=== PATIENT | male | born 1970 | race Native Hawaiian/Other Pacific Islander ===

== ENCOUNTER 2020-11-01 16:41 | Emergency (ER) | payer OTHER ==
[~2020-11-01] VITALS: Ht 165.1 cm; Wt 86.2 kg
[2020-11-01 18:14] LABS: BASOPHILS 0.7 % (0.0-2.0); HEMATOCRIT 43.5 % (42.0-52.0); HEMOGLOBIN 14.8 gm/dL (14.0-18.0); LYMPHOCYTES 16.9 % (24.0-44.0); MCV 88.2 fL (80.0-100.0); MONOCYTES 9.3 % (1.0-8.0); PLATELET COUNT 155 thou/uL (150-400); POLYS 73.1 % (36.0-66.0); RBC 4.93 mil/uL (4.50-6.00); RDW 13.2 % (10.5-14.5); WBC 5.5 thou/uL (4.0-11.0)
[2020-11-01 18:23] LABS: ANION GAP 9 mmol/L (7-16); BUN 16 mg/dL (7-18); CALCIUM 8.7 mg/dL (8.5-10.1); CHLORIDE 96 mmol/L (98-107); CO2 24 mmol/L (21-32); CREATININE 1.4 mg/dL (0.7-1.3); GLUCOSE 122 mg/dL (74-106); POTASSIUM 3.6 mmol/L (3.5-5.1); SODIUM 129 mmol/L (136-145)
[2020-11-01 18:41] LABS: ALBUMIN 3.5 g/dL (3.4-5.0); APTT 31.3 Seconds (24.5-32.8); D-DIMER 0.19 ug/mLFEU (0.19-0.50); PROTIME 10.5 Seconds (9.3-11.4); SGOT 64 U/L (15-37); SGPT 52 U/L (16-63); TOTAL BILIRUBIN 0.5 mg/dL (0.2-1.0); TOTAL PROTEIN 7.8 g/dL (6.4-8.2); TROPONIN-I <0.06 ng/mL (<0.06)
[2020-11-01] MEDS ORDERED: ASA81BEC PO (18:59)
[2020-11-01] MEDS ORDERED: AZITHROMYCIN 2250 MG PO (19:19)
[2020-11-01] MEDS ORDERED: MEDROLDOSEPACK PO (19:19)
[2020-11-01] MEDS ORDERED: CODEINE-GUAIFE120 ML PO (19:19)
[2020-11-01 20:35] VITALS: BP 110/67
--- NOTE | 2020-11-02 07:39 | EKG ---
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 : 1970 Requested By: Leonard Clemente Order Number: [id number] MD: Tino Fernandez Measurements Intervals [place] Rate: 94 P: 29 AK: 152 QRS: -32 QRSD: 99 T: 13 QT: 352 QTc: 441 Interpretive Statements Sinus rhythm Abnormal R-wave progression, late transition Left ventricular hypertrophy Baseline wander in lead(s) V2,V5,V6 No previous ECG available for comparison Electronically Signed On 11-02-2020 7:39:44 REPAIRER AND CHECKER by Tino Fernandez [email or web address] <ELECTRONICALLY SIGNED> By: Tino Fernandez MD, [facility] 11/02/20 0739 D: [id number] Tino Fernandez MD, FACC /EPI
== END 2020-11-01 20:37 | disposition home or self-care (01) ==
LOC: ER 16:41
PROVIDERS: Emergency Medicine
DX: U07.1 COVID-19 (principal); J12.82 Pneumonia due to coronavirus disease 2019; Z79.82 Long term (current) use of aspirin

== ENCOUNTER → 2021-02-07 | Outpatient (CLI) | payer BC, OTHER ==
[~2021-02-07] MED LIST: ASA81BEC PO; AZITHROMYCIN 2250 MG PO; CODEINE-GUAIFE120 ML PO; MEDROLDOSEPACK PO
--- NOTE | ~2021-02-07 | PFR/MVV ---
[facility] [place] [address] PULMONARY FUNCTION MVV/REPORT Name: SNEHA LEIGH Room #: [facility].#: [id number] Admission: 02/07/21 Attend Phys: Adeel Nielsen MD Discharge: Date of : 72 Report #: [id number] THIS REPORT FOR: //name// >> SPIROMETRY: (BTPS) Height: 64 in cm Weight: 185 lbs kg Exam Date: 02/07/21 PRE-RX POST-RX PRED BEST %PRED BEST %PRED %CHG FVC LITERS . 4.01 . 3.69 . 92 . 3.81 . 95 . 3 FEV1 LITERS . 3.06 . 3.19 . 104 . 3.41 . 112 . 7 FEV1/FVC % . 75 . 86 . 115 . 90 . 119 . 4 UUO67-98% L/Sec . 3.32 . 3.48 . 105 . 4.96 . 149 . 42 PEF L/SEC . 7.57 . 7.42 . +9 . 6.92 . 91 . -7 FEF50/FIF50 UNITLESS . <1.00 . 1.47 . . 1.61 . . 9 MVV L/Min . . . f 1/Min . . . >> LUNG VOLUMES: (BTPS) PRE-RX POST-RX PRED AVG %PRED AVG %PRED %CHG VC Liters . 4.01 . 5.30 . 132 . . . TLC Liters . 5.39 . 6.52 . 121 . . . RV Liters . 1.77 . 1.22 . 69 . . . RV/TLC % . 34 . 19 . 56 . . . FRC PL Liters . 2.68 . 3.09 . 116 . . . FRC N2 Liters . 2.68 . . . . . ERV Liters . 1.35 . 1.87 . 139 . . . IC Liters . 2.69 . 2.99 . 111 . . . >> DIFFUSION: DLCO ml/Min/mmHg . 24.5 . 18.5 . 75 . . . DL Capo ml/Min/mmHg . 24.5 . 18.5 . 75 . . . DLCO/VA ml/Min/mmHg . 4.02 . 4.17 . 104 . . . VA Liters . 5.94 . 4.43 . 75 . . . COMMENTS: COMMENTS: >> RESISTANCE: [facility] [address] [place] [address] PULMONARY FUNCTION MVV/REPORT Name: SNEHA LEIGH Room #: [facility] Tito.#: [id number] Admission: 02/07/21 Attend Phys: Adeel Nielsen MD Discharge: Date of : 72 Report #: [id number] PRE-RX PRED AVG %PRED Raw Total cmH20/L/Sec . . 6.94 . Raw Insp cmH20/L/Sec . . 8.86 . Raw Exp cmH20/L/Sec . . 10.62 . Raw cmH20/L/Sec . 1.83 . 1.84 . 100 Gaw L/Sec/cmH20 . 0.642 . 0.545 . 85 sRaw cmH20 Sec . 4.91 . 3.94 . 80 sGaw l/cmH20 Sec . 0.204 . 0.254 . 124 Vtq Liters . . 2.15 . # = OUTSIDE 95% CONFIDENCE INTERVAL CALIBRATION: PRED: 3.00 ACTUAL: EXP 3.01 INSP 3.02 [facility]06 [facility] N-1804-4 >> INTERPRETATION/IMPRESSION: DATE OF SERVICE: 02/07/2021 PULMONARY FUNCTION STUDIES: ATTENDING PHYSICIAN: Dr. Adeel Nielsen. SPIROMETRY: FEV1 is 3.19 liters (104%), FVC is 3.69 liters (92%), FEV1/FVC ratio is 86%. Postbronchodilator therapy with no significant response to bronchodilator therapy, FEV1 increased to 3.41 liters (7% change), FVC increased to 3.81 liters (3% change). Total lung capacity is 6.52 liters (121%). RV is 1.22 liters (69%). Diffusing capacity 75%. IMPRESSION: Pulmonary function studies are showing no obstructive airflow defect. Function is essentially normal. Lung volumes show mild hyperinflation. Diffusing capacity is normal. There is no significant response to bronchodilator therapy. By: Taras Allen MD /nt
== END ==
LOC: PUL 10:46
PROVIDERS: ATTEND Internal Medicine
DX: J98.4 Other disorders of lung (principal); J84.9 Interstitial pulmonary disease, unspecified